=== PATIENT | female | born 1985 | race Caucasian/White ===

== ENCOUNTER 2017-02-04 13:32 | Day surgery (SDC) | payer OTHER ==
[2017-02-04] VITALS (11 sets, daily range): BP systolic 105–132; BP diastolic 70–84; PULSE 70–100; RESP 14–20; Ht 160 cm; Wt 52.2 kg
[~2017-02-04] VITALS: Ht 160 cm; Wt 52.2 kg
[2017-02-04] MEDS ORDERED: LACTATED RINGER'S 1,000 ML IV* SCH (14:30)
--- NOTE | 2017-02-04 16:48 | HPN ---
Date/Time of Note Date/Time of Note DATE: 02/04/17 TIME: 16:48 Interval H&P Admission Note Pt. seen H&P reviewed: No system changes JING WINTERS Feb 04, 2017 16:48
[2017-02-04] MEDS ORDERED: MIDAZOLAM 1 MG/ML 2 ML INJ ONE (16:52)
[2017-02-04] MEDS ORDERED: ROCURONIUM 50 MG INJ ONE (16:52)
[2017-02-04] MEDS ORDERED: CEFAZOLIN 1 GM INJ ONE (16:52)
[2017-02-04] MEDS ORDERED: NEOSTIGMINE 3 MG/3 ML SYRINGE ONE (16:52)
[2017-02-04] MEDS ORDERED: DEXAMETHASONE 4 MG/ML 1 ML INJ ONE (16:52)
[2017-02-04] MEDS ORDERED: ONDANSETRON 4 MG INJ ONE (16:52)
[2017-02-04] MEDS ORDERED: PROPOFOL 20 ML ONE (16:52)
[2017-02-04] MEDS ORDERED: FENTAnyl 50 MCG/ML VIAL ONE (16:52)
[2017-02-04] MEDS ORDERED: GLYCOPYRROLATE 0.4 MG INJ ONE (16:52)
[2017-02-04] MEDS ORDERED: ROPIVACAINE 0.5 % 30 ML VIAL ONE (16:53)
[2017-02-04] MEDS ORDERED: IPRATROPIUM (NEB) 0.5 MG/2.5 ML AMP HHN PRN (18:00)
[2017-02-04] MEDS ORDERED: ONDANSETRON 4 MG INJ IV PRN (18:00)
[2017-02-04] MEDS ORDERED: MEPERIDINE 25 MG INJ IV PRN (18:00)
[2017-02-04] MEDS ORDERED: MIDAZOLAM 1 MG/ML 2 ML INJ IV PRN (18:00)
[2017-02-04] MEDS ORDERED: ALBUTEROL 0.083% (NEB) 2.5 MG/3 ML AMP HHN PRN (18:00)
[2017-02-04] MEDS ORDERED: EPHEDrine SULFATE 50 MG/5 ML SYG IV PRN (18:00)
[2017-02-04] MEDS ORDERED: hydrALAzine 20 MG INJ IV PRN (18:00)
[2017-02-04] MEDS ORDERED: FENTAnyl 50 MCG/ML VIAL IV PRN ×3 (18:00)
[2017-02-04] MEDS ORDERED: HYDROmorphONE (0.2 MG/ML) 10ML SYG IV PRN ×3 (18:00)
[2017-02-04] MEDS ORDERED: LABETALOL HCL 20MG INJ IV PRN (18:00)
[2017-02-04] MEDS ORDERED: TRIMETHOBENZAMIDE 100 MG/ML VIAL IM PRN (18:00)
[2017-02-04] MEDS ORDERED: OXYCODONE/ACETAMINOPHEN (5/325) TAB PO PRN ×2 (18:00)
[2017-02-04] MEDS ORDERED: DIPHENHYDRAMINE 50 MG INJ IV PRN (18:00)
[2017-02-04] MEDS ORDERED: KETOROLAC 30 MG INJ ONE (18:16)
[2017-02-04] MEDS ORDERED: METOCLOPRAMIDE 10 MG INJ ONE (18:17)
--- NOTE | 2017-02-04 18:26 | OPPN ---
Date/Time of Note Date/Time of Note DATE: 02/04/17 TIME: 18:23 Operative Report Preoperative Diagnosis right ring and small finger CMC dislocations Postoperative Diagnosis right ring and small finger CMC dislocations Operation/Procedure Performed open treatment- reduction and pinning- of right ring and small finger CMC dislocations Surgeon see signature line portfolio assistant none Anesthesia: general Estimated blood loss: 0 - 10 ml's Transfusion Required none Specimen none Grafts/Implants none Complications none JING WINTERS Feb 04, 2017 18:26
--- NOTE | 2017-02-04 19:02 | OPR ---
DATE OF OPERATION: 02/04/2017 SURGEON: Robert Rogers MD ANESTHESIA: Peripheral nerve block plus general. PREOPERATIVE DIAGNOSES: 1. Right ring finger carpometacarpal joint dislocation. 2. Right small finger carpometacarpal joint dislocation. POSTOPERATIVE DIAGNOSES: 1. Right ring finger carpometacarpal joint dislocation. 2. Right small finger carpometacarpal joint dislocation. OPERATIONS PERFORMED: 1. Open treatment of right ring finger carpometacarpal joint dislocation with open reduction and pinning. 2. Open treatment of right small finger carpometacarpal joint dislocation with open reduction and pinning. OPERATIVE FINDINGS: Displaced right ring finger and small finger CMC dislocations. INDICATIONS FOR PROCEDURE: A 31-year-old female with an injury to the right hand almost 5 weeks ago. She was seen in clinic and diagnosed with CMC dislocations of the ring finger and small finger. We discussed the options and given the dorsal prominence and persistent pain, the patient elected to proceed with surgical intervention understanding the risks and benefits. OPERATIVE PROCEDURE: The patient was seen in the preoperative area. All further questions were answered. Again, she gave informed consent understanding risks and benefits. She was taken out of the sling and placed in supine position. She was administered a peripheral nerve block and then placed under general anesthesia. Ancef, 2 grams, IV was given and tourniquet placed on the right upper extremity. The right upper extremity was prepped with Chloraprep stick and draped in the usual sterile fashion. Esmarch bandage was used to exsanguinate the extremity and tourniquet inflated to 250 mmHg. A dorsal longitudinal incision was utilized over the CMC dislocation and sharp dissection was carried down through skin and subcutaneous tissue. The extensor tendons were retracted and the dorsal wrist capsule was visualized. A capsulotomy was made and the ring finger and small finger CMC joints were visualized. There was significant dorsal prominence with almost 100 percent dorsal displacement of the ring finger metacarpal and 50-75 percent displacement of the small finger metacarpal. There was early callus formation and scar tissue formation, which had to be mobilized to the volar articular surface as well as radially and ulnarly. After the metacarpals were mobilized, they were reduced to a near anatomic position, and a 0.045 K-wire was driven from ulnar to radial, securing the small finger to the ring finger to the middle finger metacarpal. An additional K-wire was driven across all the metacarpals to provide additional stability. A third 0.045 K-wire was also used to secure the small, ring and middle finger metacarpals. I was pleased with the stability of the joint as well as of the metacarpals and the pins were cut short and pin caps placed. The wound was copiously irrigated and skin closed with 5-0 nylon. Xeroform placed on the wound followed by sterile gauze, Webril, and a short arm metacarpal cuffed splint. Tourniquet deflated after 49 minutes. The patient was awakened from anesthesia. She was taken the postoperative suite in stable condition, having tolerated the procedure well without complications. SPECIMENS: None. ESTIMATED BLOOD LOSS: 5 mL. COUNTS: Sponge, instrument and needle counts correct. TOURNIQUET TIME: Of 49 minutes. CONDITION ON DISCHARGE: Stable. Dictated By: Robert Rogers MD /ethan/jack /Document#: [id number]
--- NOTE | 2017-02-05 12:26 | RADRPT ---
PROCEDURE: X-ray fluoroscopy guidance CLINICAL INDICATION: Right hand ORIF. TECHNIQUE: Fluoroscopic guidance was utilized for an intraoperative procedure. Fluoro time: 51 seconds. Number of images/sequences: 25 COMPARISON: None. FINDINGS: Fluoroscopic images were obtained intraoperatively for localization during right metacarpal pinning. IMPRESSION: 1. X-ray fluoroscopic guidance utilized for intraoperative procedure for right hand ORIF. 2. Please refer to the procedural/operative report. RPTAT: AAEE Vincent Dale Physician Date Time Electronically viewed and signed by Vincent Dale Physician on 02/05/2017 12:25 PH/
== END 2017-02-04 19:45 | disposition home or self-care (01) ==
LOC: SDS 13:32
PROVIDERS: ATTEND Orthopaedic Surgery Hand Surgery
DX: S63.264A Dislocation of metacarpophalangeal joint of right ring finger, initial encounter (principal); S63.266A Dislocation of metacarpophalangeal joint of right little finger, initial encounter; X58.XXXA Exposure to other specified factors, initial encounter; Y93.89 Activity, other specified; Y92.89 Other specified places as the place of occurrence of the external cause; Y99.8 Other external cause status
CPT/HCPCS: 26746; 73130; C1713; J0690; J1100; J1885; J2175; J2250; J2405; J2765; J2795; J3010; Z7512; Z7610; J2710